=== PATIENT | female | born 1950 | race Caucasian/White ===

== ENCOUNTER → 2024-12-11 | Outpatient (REF) | payer MEDICARE ==
[~2024-12-11] MED LIST: ASPIR 8181 MG PO; GLYBURIDE5 MG PO; LANTUS100 UNITS/ SC; LISINOPRIL10 MG PO; SIMVASTATIN20 MG PO
== END ==
LOC: RAD 09:18
PROVIDERS: ATTEND Specialist/Technologist, Other Surgical Technologist
DX: M25.512 Pain in left shoulder (principal)